=== PATIENT | female | born 1935 | race Caucasian/White ===

== ENCOUNTER 2021-10-03 11:39 | Emergency (ER) | payer MEDICARE, SELFPAY ==
[2021-10-03 12:24] VITALS: BP 159/73; PULSE 97; RESP 18; TEMP 37.9; O2SAT 95; BMI 28.6
--- NOTE | 2021-10-03 12:28 | XRR_ITS ---
PROCEDURE INFORMATION: Exam: XR Chest Exam date and time: 10/03/2021 12:28 PM Age: 86 years old Clinical indication: Shortness of breath; Patient HX: SOB TECHNIQUE: Imaging protocol: XR of the chest. Views: 1 view. COMPARISON: CR Chest 1 [place] [id number] 11/20/2014 10:27 PM FINDINGS: Lungs: Mild bilateral pneumonia. Pleural spaces: Unremarkable. No pleural effusion. No pneumothorax. Heart/Mediastinum: Unremarkable. No cardiomegaly. Bones/joints: Unremarkable. XR/XR chest 1V portable [id number] IMPRESSION: Mild bilateral pneumonia.
--- NOTE | 2021-10-03 13:08 | W.ED.COVID ---
HPI - COVID General: Chief Complaint: COVID symptoms Stated Complaint: increased SOB/COVID+ 2 weeks ago Time Seen by Provider: 10/03/21 12:57 Source: patient Mode of arrival: wheelchair Limitations: no limitations Triage information: Has fever, cough or shortness of breath. No known COVID + exposure last 14 days History of Present Illness: 86-year-old female presents emergency room with a temp of 100.2 cough congestion shortness of breath. Patient tested positive for Covid on September 22 which would be 11 days ago. She gotten progressively worse with myalgias weakness cough and congestion she was started on steroids and just finished the back a couple of days ago she is not required any oxygen. Patient has a history of hypertension but is not diabetic she has no history of any chronic respiratory illnesses. MD complaint: known COVID positive Prior testing date: 09/22/21 COVID 19 common symptoms: positive fever(s), chills, cough, productive cough, dyspnea, fatigue, body aches, loss of sense of smell and/or taste, nasal congestion and chest tightness; negative nausea, vomiting or diarrhea COVID 19 other sytmptoms: negative chest pain or requiring oxygen Onset (ago): day(s) (11) Pertinent comorbid conditions: hypertension Treatment prior to arrival: steroids COVID Results: No Data to Display Review of Systems Const: Reports: fever(s), chills, body aches and fatigue ENMT: Reports: nasal congestion Card: Denies: chest pain, edema, dyspnea on exertion or orthopnea Resp: Reports: dyspnea and productive cough GI: Denies: abdominal pain, nausea, vomiting, hematemesis, coffee ground emesis, diarrhea, constipation, bloating, hematochezia or melena : Denies: flank pain, difficulty voiding, dysuria, urinary frequency or urinary urgency Skin/Breast: Denies: rash or pruritus [facility] ED PFSH: Medical History (Updated 10/03/21 @ 16:06 by Kenn Parker DO) Hypertension Surgical History (Updated 10/03/21 @ 13:11 by Kenn Parker DO) S/P appendectomy Social History (Updated 10/03/21 @ 13:11 by Kenn Parker DO) Smoking and tobacco status: never smoked Alcohol intake: never Physical Exam Const: COMMON NORMALS: no acute distress GENERAL APPEARANCE: cooperative and comfortable ORIENTATION/CONSCIOUSNESS: Yes awake, Yes oriented to person, Yes oriented to place and Yes oriented to time HENMT: COMMON NORMALS: normocephalic, atraumatic and hearing grossly normal bilaterally HEAD & SCALP: normocephalic and atraumatic Neck/C-Spine: COMMON NORMALS: no JVD Resp: AUSCULTATION: crackles and wheezes Cardio: COMMON NORMALS: no JVD, regular rate, regular rhythm and No murmurs present (Cardio) RATE: regular rate RHYTHM: regular rhythm GI: COMMON NORMALS: Soft to palpation and No hepatosplenomegaly present AUSCULTATION: Yes normoactive bowel sounds PALPATION: Yes Soft to palpation, No Tenderness to palpation present (GI), No Guarding due to palpation present (GI) and Yes No hepatosplenomegaly present Extremity: COMMON NORMALS: normal to inspection, capillary refill normal, no clubbing, cyanosis or edema, no calf tenderness and no pedal edema Neuro: SENSORIUM/ORIENTATION: Yes oriented to person, Yes oriented to place and Yes oriented to time Skin: COMMON NORMALS: no rashes or lesions noted GENERAL SKIN EXAM: no rashes or lesions noted Course Vital Signs: Vital signs: Vital Signs Temperature 98.5 F 10/03/21 15:42 Pulse Rate 93 10/03/21 15:42 Respiratory Rate 18 10/03/21 15:42 Blood Pressure 158/73 10/03/21 15:42 Pulse Oximetry 95 10/03/21 16:04 MDM - COVID Medical Decision Making Patient still has active COVID symptoms. Recommend she maintain quarantine until fever and other symptoms have decreased in her 24 hours fever free without the use of antipyretics. Monitor home oxygen return if has further problems. Medical Records I reviewed the patient's medical records. Lab Data I reviewed the patient's lab results. : 10/03/21 13:30 10/03/21 13:30 Radiology Impressions Chest X-Ray 10/03/21 12:28 IMPRESSION: Mild bilateral pneumonia. Laboratory Results WBC 9.9 10^3/uL (4.0-10.0) 10/03/21 13:30 RBC 4.24 10^6/uL (4.1-5.3) 10/03/21 13:30 Hgb 13.2 g/dL (11.5-15.3) 10/03/21 13:30 Hct 38.7 % (37.0-47.0) 10/03/21 13: MCV 91.3 fl (81-99) 10/03/21 13: MCH 31.1 pg (28.0-34.0) 10/03/21 13: MCHC 34.1 g/dL (30.0-36.0) 10/03/21 13: RDW 11.9 % (12.1-15.1) L 10/03/21 13:30 Plt Count 176 10^3/cmm (130-400) 10/03/21 13: MPV 9.3 fL (7.4-10.4) 10/03/21 13: Neut % (Auto) 87.1 % 10/03/21 13: Lymph % (Auto) 5.2 % 10/03/21 13: [place] % (Auto) 6.8 % 10/03/21 13: Eos % (Auto) 0.0 % 10/03/21 13: Baso % (Auto) 0.3 % 10/03/21 13: Neut # (Auto) 8.59 10^3/uL (1.8-7.7) H 10/03/21 13: Lymph # (Auto) 0.5 10^3/uL (0.8-4.8) L 10/03/21 13: [place] # (Auto) 0.7 10^3/uL (0.2-0.9) 10/03/21 13: Eos # (Auto) 0.0 10^3/uL (0.0-0.8) 10/03/21 13: Baso # (Auto) 0.0 10^3/uL (0.0-0.1) 10/03/21 13: Nucleated RBC % (auto) 0 % 10/03/21: Nucleated RBCs # 0.0 /100WBC 10/03/21 13: Sodium 130 mmol/L (136-145) L 10/03/21 13:30 Potassium 4.2 mmol/L (3.5-5.1) 10/03/21 13: Chloride 92 mmol/L (98-107) L 10/03/21 13:30 Carbon Dioxide 25 mmol/L (22-29) 10/03/21 13:30 Anion Gap 17.2 (5-19) 10/03/21 13:30 BUN 9 mg/dL (8-23) 10/03/21 13:30 Creatinine 0.8 mg/dL (0.5-0.9) 10/03/21 13:30 GFR Calculation Not Reportable 10/03/21 13:30 Glucose 103 mg/dL (65-115) 10/03/21 13:30 Calculated Osmolality 269 mOsm/kg (285-295) L 10/03/21 13:30 Calcium 8.2 mg/dL (8.5-10.5) L 10/03/21 13:30 Total Bilirubin 0.5 mg/dL (0.15-1.2) 10/03/21 13:30 AST 30 U/L (0-32) 10/03/21 13:30 ALT 19 U/L (0-33) 10/03/21 13:30 Alkaline Phosphatase 84 IU/L (35-105) 10/03/21 13:30 Total Protein 6.7 g/dL (6.6-8.7) 10/03/21 13:30 Albumin 4.1 g/dL (3.5-5.2) 10/03/21 13:30 Globulin 2.6 g/dL (1.3-4.6) 10/03/21 13:30 No Data to Display Discharge Plan Discharge Patient Disposition: Home Clinical Impression: COVID-19 Discharge Orders: Discharge ED (Routine); Ordered 10/03/21 Ordered By: Kenn Parker Patient Instructions: COVID-19 (Coronavirus Disease 2019) (ED), Opioid Safety Activity Restrictions/Additional Instructions: Monitor home oxygen sats with pulse oximeter given to you today. Return if you have further problems. Coding Level of Care Code ED Customer Specialist for Jessica Fwd Exam Comprehensive
[2021-10-03 13:53] LABS: Basophils % 0.3 %; Hematocrit 38.7 % (37.0-47.0); Hemoglobin 13.2 g/dL (11.5-15.3); Lymphocytes # 0.5 10^3/uL (0.8-4.8); Lymphocytes % 5.2 %; Mean Corpuscular HGB Conc 34.1 g/dL (30.0-36.0); Mean Corpuscular Hemoglobin 31.1 pg (28.0-34.0); Mean Corpuscular Volume 91.3 fl (81-99); Mean Platelet Volume 9.3 fL (7.4-10.4); Monocytes # 0.7 10^3/uL (0.2-0.9); Monocytes % 6.8 %; Neutrophils # 8.59 10^3/uL (1.8-7.7); Neutrophils % 87.1 %; Nucleated Red Blood Cells % 0 %; Platelet Count 176 10^3/cmm (130-400); Red Blood Count 4.24 10^6/uL (4.1-5.3); Red Cell Distribution Width 11.9 % (12.1-15.1); White Blood Count 9.9 10^3/uL (4.0-10.0)
[2021-10-03 14:04] LABS: Alanine Aminotransferase 19 U/L (0-33); Albumin Level 4.1 g/dL (3.5-5.2); Alkaline Phosphatase 84 IU/L (35-105); Anion Gap 17.2 (5-19); Aspartate Amino Transferase 30 U/L (0-32); Blood Urea Nitrogen 9 mg/dL (8-23); Calcium 8.2 mg/dL (8.5-10.5); Carbon Dioxide 25 mmol/L (22-29); Chloride 92 mmol/L (98-107); Creatinine Clr Calc Pharmacy 51.2302; Globulin 2.6 g/dL (1.3-4.6); Glucose 103 mg/dL (65-115); Osmolality Calculated 269 mOsm/kg (285-295); Potassium 4.2 mmol/L (3.5-5.1); Sodium 130 mmol/L (136-145); Total Bilirubin 0.5 mg/dL (0.15-1.2); Total Protein 6.7 g/dL (6.6-8.7)
[2021-10-03 15:42] VITALS: BP 158/73; PULSE 93; RESP 18; TEMP 36.9; O2SAT 95
[2021-10-03 16:04] VITALS: O2SAT 93; O2SAT 95
[2021-10-03 17:10] VITALS: BP 148/72; PULSE 94; RESP 17; TEMP 37.5; O2SAT 95
== END 2021-10-03 17:12 | disposition home or self-care (01) ==
PROVIDERS: Emergency Medicine; Emergency Provider Family Medicine
DX: U07.1 COVID-19 (principal); I10 Essential (primary) hypertension
CPT/HCPCS: 71045; 80053; 85025; 99283

== ENCOUNTER 2022-07-23 16:40 | Emergency (ER) | payer MEDICARE, SELFPAY ==
[2022-07-23 16:44] VITALS: BP 135/66; PULSE 90; RESP 16; TEMP 36.9; O2SAT 94
--- NOTE | 2022-07-23 16:50 | ECG_ITS ---
[facility] Test Date: 2022-07-23 Pat Name: Noemí Toledo Department: Room: Gender: Female Director Plans: : 1935 Requested By: Carlos Vasquez Order Number: [id number] James MD: Karan Rodriguez M.D. Measurements Intervals [place] Rate: 89 P: 51 NV: 140 QRS: -7 QRSD: 89 T: 10 QT: 340 QTc: 414 Interpretive Statements SINUS RHYTHM WITH SINUS ARRHYTHMIA MODERATE VOLTAGE CRITERIA FOR LVH, CONSIDER NORMAL VARIANT [MEETS CRITERIA IN ONE OF: R(aVL), S(V1), R(V5), R(V5/V6)+S(V1)] MINIMAL ST DEPRESSION [0.025+ mV ST DEPRESSION] Compared to ECG 11/20/2014 22:31:13 ST (T wave) deviation now present Electronically Signed On 07-24-2022 11:01:43 BUSINESS SERVICES MANAGER by Karan Rodriguez M.D. [id number]
--- NOTE | 2022-07-23 16:50 | XRR_ITS ---
PROCEDURE INFORMATION: Exam: XR Chest Exam date and time: 07/23/2022 5:19 PM Age: 86 years old Clinical indication: Pain; Cough and shortness of breath; Chest pressure; Additional info: Cp TECHNIQUE: Imaging protocol: Radiologic exam of the chest. Views: 1 view. COMPARISON: CR (CHEST, ) 10/03/2021 1:38 PM FINDINGS: Lungs: Mild opacities in the left lateral costophrenic angle suggesting possible atelectasis and/or infiltrate and/or scarring. Pleural spaces: Unremarkable. No pleural effusion. No pneumothorax. Heart/Mediastinum: Unremarkable. No cardiomegaly. Bones/joints: Unremarkable. Other findings: Patient rotation to the left. XR/XR chest 1V portable [id number] IMPRESSION: Mild opacities in the left lateral costophrenic angle suggesting possible atelectasis and/or infiltrate and/or scarring.
[2022-07-23 17:13] LABS: Basophils % 0.1 %; Hematocrit 35.6 % (37.0-47.0); Hemoglobin 12.2 g/dL (11.5-15.3); Lymphocytes # 0.5 10^3/uL (0.8-4.8); Lymphocytes % 3.6 %; Mean Corpuscular HGB Conc 34.3 g/dL (30.0-36.0); Mean Corpuscular Hemoglobin 31.7 pg (28.0-34.0); Mean Corpuscular Volume 92.5 fl (81-99); Mean Platelet Volume 9.3 fL (7.4-10.4); Monocytes # 0.5 10^3/uL (0.2-0.9); Monocytes % 3.7 %; Neutrophils # 12.95 10^3/uL (1.8-7.7); Nucleated Red Blood Cells % 0 %; Platelet Count 236 10^3/cmm (130-400); Red Blood Count 3.85 10^6/uL (4.1-5.3); Red Cell Distribution Width 12.5 % (12.1-15.1); White Blood Count 14.1 10^3/uL (4.0-10.0)
[2022-07-23 17:31] LABS: Troponin(5th) Baseline 21 ng/L (0-10)
[2022-07-23 17:37] LABS: Alanine Aminotransferase 22 U/L (0-33); Alkaline Phosphatase 78 U/L (35-105); Anion Gap 16.2 (5-19); Aspartate Amino Transferase 27 U/L (0-32); Blood Urea Nitrogen 15 mg/dL (8-23); Calcium 8.6 mg/dL (8.5-10.5); Carbon Dioxide 26 mmol/L (22-29); Chloride 91 mmol/L (98-107); Creatinine Clr Calc Pharmacy 41.9267; Globulin 2.9 g/dL (1.3-4.6); Glucose 114 mg/dL (65-115); NT Pro B Type Natriuretic Pept 1324 pg/mL (0-450); Osmolality Calculated 270 mOsm/kg (285-295); Potassium 4.2 mmol/L (3.5-5.1); Sodium 129 mmol/L (136-145); Total Bilirubin 0.4 mg/dL (0.15-1.2); Total Protein 6.9 g/dL (6.6-8.7)
[2022-07-23 18:39] VITALS: PULSE 85; RESP 16; O2SAT 97
--- NOTE | 2022-07-23 18:50 | ECG_ITS ---
[facility] Test Date: 2022-07-23 Pat Name: Noemí Toledo Department: Room: Gender: Female Recreation Therapy Teacher: : 1935 Requested By: Carlos Vasquez Order Number: [id number] Jacob MD: Karan Rodriguez M.D. Measurements Intervals [place] Rate: 80 P: 50 VA: 143 QRS: 7 QRSD: 93 T: 27 QT: 355 QTc: 412 Interpretive Statements SINUS RHYTHM MINIMAL ST DEPRESSION [0.025+ mV ST DEPRESSION] Compared to ECG 07/23/2022 16:49:45 Sinus arrhythmia no longer present ST (T wave) deviation still present Electronically Signed On 07-24-2022 11:09:38 JAVA SECURITY ENGINEER by Karan Rodriguez M.D. [id number]
[2022-07-23 19:02] VITALS: BP 168/81; PULSE 80; RESP 16; O2SAT 93
--- NOTE | 2022-07-23 19:16 | ED_ITS ---
HPI - SOB/Dyspnea General: Chief Complaint: Shortness of Breath/Dyspnea Stated Complaint: sob, chst pain Time Seen by Provider: 07/23/22 19:07 Source: patient Mode of arrival: ambulatory History of Present Illness: HPI Narrative: 86-year-old female who presents to the emergency room with complaints of gen erally not feeling well with coughCOVID-19 and shortness of breath shortness of breath worse when she lies flat had headache myalgias decreased appetite cough is nonproductive. She has noted a fever at home was afebrile on presentation here. She was seen earlier in the week. Primary care doctor and treated for pneumonia. MD elicited complaint: shortness of breath and cough Pertinent past history: pneumonia Onset (ago): week(s) (1) Timing: constant Severity: mild Exacerbating factors: lying flat, exertion and coughing Relieving factors: oxygen and bronchodilators Associated symptoms: Reports chest congestion, cough, fever(s), myalgias, nausea and orthopnea; Deny abdominal pain, chest pain, diaphoresis, dizziness, extremity pain, hemoptysis, lightheadedness, palpitations, paresthesias, polydipsia, polyuria, rash, sense of impending doom, syncope or vomiting Treatment prior to arrival: none Review of Systems Const: Reports: fever(s), chills, fatigue and malaise; Denies: diaphoresis ENMT: Denies: throat pain, ear or mastoid pain, nasal discharge or nasal congestion Card: Reports: orthopnea; Denies: chest pain, palpitations, lightheadedness or syncope Resp: Reports: dyspnea, non-productive cough and chest congestion; Denies: productive cough or hemoptysis GI: Reports: nausea; Denies: abdominal pain or vomiting : Denies: flank pain, difficulty voiding, dysuria, urinary frequency or urinary urgency Musc: Denies: extremity pain Skin/Breast: Denies: rash or pruritus Neuro: Denies: dizziness Endo: Denies: polyuria or polydipsia [facility] ED PFSH: Medical History Hypertension Surgical History S/P appendectomy Social History Smoking and tobacco status: never smoked Alcohol intake: never Physical Exam Const: GENERAL APPEARANCE: cooperative and comfortable ORIENTATION/CONSCIOUSNESS: Yes awake, Yes oriented to person, Yes oriented to place and Yes oriented to time HENMT: COMMON NORMALS: normocephalic, atraumatic and hearing grossly normal bilaterally HEAD & SCALP: normocephalic and atraumatic Resp: COMMON NORMALS: normal respiratory effort, No retractions and No use of accessory muscles AUSCULTATION: rhonchi and wheezes Cardio: COMMON NORMALS: regular rate, regular rhythm and No murmurs present (Cardio) RATE: regular rate RHYTHM: regular rhythm GI: COMMON NORMALS: Soft to palpation and No hepatosplenomegaly present AUSCULTATION: Yes normoactive bowel sounds PALPATION: Yes Soft to palpation, No Tenderness to palpation present (GI), No Guarding due to palpation present (GI) and Yes No hepatosplenomegaly present Extremity: COMMON NORMALS: normal to inspection, capillary refill normal, no clubbing, cyanosis or edema, no calf tenderness and no pedal edema Neuro: SENSORIUM/ORIENTATION: Yes oriented to person, Yes oriented to place and Yes oriented to time Skin: COMMON NORMALS: no rashes or lesions noted GENERAL SKIN EXAM: no rashes or lesions noted Course Vital Signs: Vital signs: Vital Signs Temperature 98.5 F 07/23/22 16:44 Pulse Rate 83 07/23/22 19:30 Respiratory Rate 12 07/23/22 19:30 Blood Pressure 151/77 07/23/22 19:30 Pulse Oximetry 91 07/23/22 19:30 Oxygen Delivery Me thod 07/23/22 19:02 MDM - SOB/Dyspnea Medical Decision Making Oxygen saturations are stable vital signs stable patient positive influenza A supportive cares complete course of antibiotic given by her primary care physician use albuterol as needed follow-up as needed Medical Records I reviewed the patient's medical records. Lab Data I reviewed the patient's lab results. 07/23/22 17:00 07/23/22 17:00 Labs/Radiology: Radiology Impressions Chest X-Ray 07/23/22 16:50 IMPRESSION: Mild opacities in the left lateral costophrenic angle suggesting possible atelectasis and/or infiltrate and/or scarring. Laboratory Results WBC 14.1 10^3/uL (4.0-10.0) H 07/23/22 17:00 RBC 3.85 10^6/uL (4.1-5.3) L 07/23/22 17:00 Hgb 12.2 g/dL (11.5-15.3) 07/23/22 17:00 Hct 35.6 % (37.0-47.0) L 07/23/22 17:00 MCV 92.5 fl (81-99) 07/23/22 17:00 MCH 31.7 pg (28.0-34.0) 07/23/22 17:00 MCHC 34.3 g/dL (30.0-36.0) 07/23/22 17:00 RDW 12.5 % (12.1-15.1) 07/23/22 17:00 Plt Count 236 10^3/cmm (130-400) 07/23/22 17:00 MPV 9.3 fL (7.4-10.4) 07/23/22 17:00 Neut % (Auto) 92.0 % 07/23/22 17:00 Lymph % (Auto) 3.6 % 07/23/22 17:00 [place] % (Auto) 3.7 % 07/23/22 17:00 Eos % (Auto) 0.0 % 07/23/22 17:00 Baso % (Auto) 0.1 % 07/23/22 17:00 Neut # (Auto) 12.95 10^3/uL (1.8-7.7) H 07/23/22 17:00 Lymph # (Auto) 0.5 10^3/uL (0.8-4.8) L 07/23/22 17:00 [place] # (Auto) 0.5 10^3/uL (0.2-0.9) 07/23/22 17:00 Eos # (Auto) 0.0 10^3/uL (0.0-0.8) 07/23/22 17:00 Baso # (Auto) 0.0 10^3/uL (0.0-0.1) 07/23/22 17:00 Nucleated RBC % (auto) 0 % 07/23/22 17:00 Nucleated RBCs # 0.0 /100WBC 07/23/22 17:00 Sodium 129 mmol/L (136-145) L 07/23/22 17:00 Potassium 4.2 mmol/L (3.5-5.1) 07/23/22 17:00 Chloride 91 mmol/L (98-107) L 07/23/22 17:00 Carbon Dioxide 26 mmol/L (22-29) 07/23/22 17:00 Anion Gap 16.2 (5-19) 07/23/22 17:00 BUN 15 mg/dL (8-23) 07/23/22 17:00 Creatinine 1.0 mg/dL (0.5-0.9) H 07/23/22 17:00 GFR Calculation Not Reportable 07/23/22 17:00 Glucose 114 mg/dL (65-115) 07/23/22 17:00 Calculated Osmolality 270 mOsm/kg (285-295) L 07/23/22 17:00 Calcium 8.6 mg/dL (8.5-10.5) 07/23/22 17:00 Total Bilirubin 0.4 mg/dL (0.15-1.2) 07/23/22 17:00 AST 27 U/L (0-32) 07/23/22 17:00 ALT 22 U/L (0-33) 07/23/22 17:00 Alkaline Phosphatase 78 U/L (35-105) 07/23/22 17:00 Troponin T Baseline 21 ng/L (0-10) H 07/23/22 17:00 Troponin T 120 Minute 19.09 ng/L (0-10) H 07/23/22 18:48 Delta Troponin T -1.91 ABS# (0-10) L 07/23/22 18:48 NT-Pro-B Natriuret Pep 1324 pg/mL (0-450) H 07/23/22 17:00 Total Protein 6.9 g/dL (6.6-8.7) 07/23/22 17:00 Albumin 4.0 g/dL (3.5-5.2) 07/23/22 17:00 Globulin 2.9 g/dL (1.3-4.6) 07/23/22 17:00 Influenza Type A Ag positive (Negative) 07/23/22 19:39 Influenza Type B Ag negative (Negative) 07/23/22 19:39 Discharge Plan Discharge Patient Disposition: Home Clinical Impression: Influenza A Condition: Stable Prescriptions: No Action levothyroxine [Synthroid] 125 mcg tablet 125 mcg PO DAILY lisinopril 20 mg tablet 20 mg PO DAILY levofloxacin 750 mg tablet 750 mg PO DAILY 7 Days Qty: 7 0RF prednisone 20 mg tablet 60 mg PO DAILY 5 Days Qty: 15 0RF albuterol sulfate 2.5 mg /3 mL (0.083 %) solution for nebulization 2.5 mg inhalation Q4H PRN (Reason: shortness of breath or wheezing) Qty: 75 0RF Discharge Orders: Discharge ED (Routine); Ordered 07/23/22 Ordered By: Kenn Parker Discharge Diet: Usual diet Discharge Activity: Increase activity as tolerated Patient Instructions: Opioid Safety, Pain Management Activity Restrictions/Additional Instructions: Your chest x-ray shows scarring in the right lower lobe unchanged from previous. You tested positive for influenza you are outside the window for any antiviral medications. Coding Level of Care Code ED Riveter Portable Machine for Jessica Hood
[2022-07-23 19:21] LABS: Troponin 5 2HR 19.09 ng/L (0-10)
[2022-07-23 19:29] LABS: Troponin 5 2HR Delta -1.91 ABS# (0-10)
[2022-07-23 19:30] VITALS: BP 151/77; PULSE 83; RESP 12; O2SAT 91
[2022-07-23] MEDS: FUROsemide 10 mg/mL SDV 4mL 40 MG IVP (19:37)
[2022-07-23 19:53] LABS: Influenza A by IFA positive (Negative); Influenza B by IFA negative (Negative)
== END 2022-07-23 20:30 | disposition home or self-care (01) ==
PROVIDERS: Emergency Medicine; Emergency Provider Family Medicine
DX: J10.1 Influenza due to other identified influenza virus with other respiratory manifestations (principal); I10 Essential (primary) hypertension
CPT/HCPCS: 36415; 71045; 80053; 83880; 84484; 85025; 87804; 93005; 99283; 99285; J1940